=== PATIENT | female | born 1995 | race Caucasian/White ===

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

== ENCOUNTER 2017-02-15 16:06 | Emergency (ER) | payer OTHER ==
[~2017-02-15] VITALS: Ht 162.6 cm; Wt 55.8 kg
[~2017-02-15 16:06] MED LIST changes: +BISM-34 PO; +ONDA4TAB14 PO
[2017-02-15 16:09] VITALS: Ht 162.6 cm; Wt 55.8 kg
[2017-02-15] MEDS ORDERED: ONDANSETRON (ODT) 4 MG TAB ODT STA (16:46)
[2017-02-15 16:55] LABS: URINE BLOOD (Dip) POC Negative (NEGATIVE)
[2017-02-15] MEDS ORDERED: ONDA4TAB8 PO (17:02)
--- NOTE | 2017-02-15 17:30 | ERD ---
ER Documentation Chief Complaint Chief Complaint N/V X 4 TIMES TODAY BUT GOING ON FOR FEW YEARS; WANTS EXAM HPI Patient is a 21-year-old female with no past medical history here with sister who presents to the ED with on and off nausea and vomiting, nonbloody nonbilious. States that her vomiting his saliva. She also complains of dysuria and cloudy urine on and off. Also complains of low back pain on and off for the last 2 years. Patient does not have a primary care provider and has not establish care. She denies fever or chills. She denies abdominal pain. She did have an episode of nonbloody nonblack or tarry diarrhea today. Denies recent travel. Denies chest pain or cough or shortness of breath. Denies leg pain or leg swelling. States that she had a decrease in appetite today. No other complaints. She is sexually active with men and does not use protection or on control. No history of STDs. ROS All systems reviewed and are negative except as per history of present illness. Medications Home Meds Active Scripts Ondansetron Hcl* (Zofran*) 4 Mg Tablet, 4 MG PO Q6H for NAUSEA AND/OR VOMITING, #30 TAB Prov:FLORINA MONTANO PA-C 02/15/17 Ondansetron (Ondansetron Odt) 4 Mg Tab.rapdis, 4 MG PO Q6H Y for NAUSEA AND/OR VOMITING, #10 TAB Prov:SUKHJINDER NAZARIO PA-C 04/12/16 Bismuth Subsalicylate* (Bismuth Subsalicylate*) 262 Mg/15 Ml Oral.susp, 15 ML PO Q6 Y for prn, #120 ML Prov:SUKHJINDER NAZARIO PA-C 04/12/16 Ibuprofen* (Motrin*) 800 Mg Tab, 800 MG PO Q6H Y for PAIN AND OR ELEVATED TEMP, #30 TAB Prov:RAVINDRA VASQUEZ DO 09/21/15 Allergies Allergies: Coded Allergies: No Known Allergy (Unverified , 02/15/17) PMhx/Soc Medical and Surgical Hx: pt denies Medical Hx, pt denies Surgical Hx Hx Alcohol Use: No Hx Substance Use: No Hx Tobacco Use: No Smoking Status: Never smoker FmHx Family History: No coronary disease, No diabetes, No other Physical Exam Vitals Vital Signs Date Time Temp Pulse Resp B/P Pulse Ox O2 Delivery O2 Flow Rate FiO2 02/15/17 16:09 97.2 66 18 121/66 97 Physical Exam GENERAL: Well-developed, well-nourished female. Appears in no acute distress. HEAD: Normocephalic, atraumatic. EYES: Pupils are equally reactive bilaterally. EOMs grossly intact. No conjunctival erythema. ENT: Moist mucous membranes. No uvula deviation. No kissing tonsils. No exudates. NECK: Supple. No lymphadenopathy or thyromegaly. No meningismus. negative kernig. negative brudinski. LUNG: Clear to auscultation bilaterally. No rhonchi, wheezing, rales or coarse breath sounds. HEART: Regular rate and rhythm. No murmurs, rubs or gallops. ABDOMEN: No scars, ecchymosis or rashes noted. Soft, nontender, and nondistended. Positive bowel sounds in all four quadrants. No rebound tenderness , no guarding. (-) McBurneys point tenderness. No CVA tenderness. BACK: No midline tenderness. Extremities: Equal pulses bilaterally. No peripheral clubbing, cyanosis or edema. No unilateral leg swelling. NEUROLOGIC: Alert and oriented. Moving all four extremities. 5/5 strength in all extremities. Normal speech. Steady gait. SKIN: Normal color. Warm and dry. No rashes or lesions. Capillary refill < 2 seconds Results 24 hrs Laboratory Tests Test 02/15/17 16:54 Bedside Urine pH (LAB) 5.5 Bedside Urine Protein (LAB) Trace Bedside Urine Glucose (UA) Negative Bedside Urine Ketones (LAB) 2+ Bedside Urine Blood Negative Bedside Urine Nitrite (LAB) Negative Bedside Urine Leukocyte Esterase (L Negative Current Medications Medications (Trade) Dose Ordered Sig/Sarah Route PRN Reason Start Time Stop Time Status Last Admin Dose Admin Ondansetron HCl (Zofran Odt) 4 mg ONCE STAT ODT 02/15/17 16:46 02/15/17 16:47 DC 02/15/17 16:57 Procedures/MDM ER COURSE: I kept the patient and/or family informed of laboratory and diagnostic imaging results throughout the emergency room course. MEDICAL DECISION MAKING: This is a 21-year-old female who presents with dysuria, nausea and vomiting on and off 2 years. Vital signs were reviewed. Patient is afebrile. Patient is not hypoxic. Is not toxic or ill-appearing. Patient's urine dip is negative for nitrites, leukocytes or hematuria. Negative test. Low suspicion for cystitis. Patient was given Zofran, tolerated well with no adverse reaction. I advised patient that she needs to follow-up with her primary care provider to establish care and get general workup done and follow-up regarding her chronic symptoms. Low suspicion for ACS, AAA, perforated ulcer, bowel obstruction, cholecystitis, choledocholithiasis, cholangitis, pancreatitis, hepatic abscess, appendicitis, diverticulitis, gastroenteritis, hepatitis. Low suspicion for ovarian torsion, PID, tuboovarian abscess, ectopic , bowel obstruction, pyelonephritis, UTI, appendicitis, cervicitis. Suspicion for dehydration, moist mucous membranes. Suspicion for acute abdomen DISCHARGE: At this time, patient is stable for discharge and outpatient management with no new complaints during the ER course. Patient was sent home with Zofran and a list of primary care providers.. Patient will be discharged home with instructions to recheck for new or worsening symptoms such as fever, nausea, weakness, LOC and to follow up with primary care in the next 1-2 days. Patient was advised to return to the ER for any new or worsening symptoms. Plan was discussed and patient and/or family understands and agrees. Home instructions were given. Departure Diagnosis: Primary Impression: Dysuria Additional Impression: Nausea and vomiting Vomiting type: unspecified Vomiting Intractability: non-intractable Qualified Code: R11.2 - Non-intractable vomiting with nausea, unspecified vomiting type Condition: Stable Patient Instructions: Dysuria Referrals: REPLACED BY [facility] YOU HAVE RECEIVED A MEDICAL SCREENING EXAM AND THE RESULTS INDICATE THAT YOU DO NOT HAVE A CONDITION THAT REQUIRES URGENT TREATMENT IN THE EMERGENCY DEPARTMENT. FURTHER EVALUATION AND TREATMENT OF YOUR CONDITION CAN WAIT UNTIL YOU ARE SEEN IN YOUR DOCTORS OFFICE WITHIN THE NEXT 1-2 DAYS. IT IS YOUR RESPONSIBILITY TO MAKE AN APPOINTMENT FOR FOLOW-UP CARE. IF YOU HAVE A PRIMARY DOCTOR --you should call your primary doctor and schedule an appointment IF YOU DO NOT HAVE A PRIMARY DOCTOR YOU CAN CALL OUR PHYSICIAN REFERRAL HOTLINE AT IF YOU CAN NOT AFFORD TO SEE A PHYSICIAN YOU CAN CHOSE FROM THE FOLLOWING [facility] [id number] [facility] [address] [facility] [address] [facility] [address] [facility]. [facility] [address] [facility]. [facility] [address] Additional Instructions: Call your primary care doctor TOMORROW for an appointment during the next 1-2 days.See the doctor sooner or return here if your condition worsens before your appointment time. FLORINA MONTANO PA-C Feb 15, 2017 17:30
== END 2017-02-15 17:26 | disposition home or self-care (01) ==
LOC: FTE 16:06
DX: R30.0 Dysuria (principal)
CPT/HCPCS: 81003; Z7502; Z7610; 99283

== ENCOUNTER 2017-03-04 18:04 | Emergency (ER) | payer OTHER ==
[~2017-03-04] VITALS: Ht 165.1 cm; Wt 53.4 kg
[~2017-03-04 18:04] MED LIST changes: +ONDA4TAB8 PO
[2017-03-04 18:12] VITALS: Ht 165.1 cm; Wt 53.4 kg
[2017-03-04] MEDS ORDERED: KETOROLAC 30 MG INJ IM STA (18:45)
[2017-03-04] MEDS ORDERED: DIPHENHYDRAMINE 50 MG INJ IM ONE (19:00)
[2017-03-04] MEDS ORDERED: METOCLOPRAMIDE 10 MG INJ IM ONE (19:00)
--- NOTE | 2017-03-04 19:30 | ERD ---
ER Documentation Chief Complaint Chief Complaint headache x 2 days HPI Otherwise healthy 21-year-old female presenting with a chief complaint of headache. Headache has been intermittent for the past 4-5 days. Patient has headaches in the past. Describes his headache as 8-9 out of 10. Described as sharp and bilateral. Has not taken any medications to relieve the symptoms. Denies fever, worst headache of life, thunderclap headache, meningismus, temporal pain, eye pain, aura, change in vision, or new medications. Patient has no other complaints and describes no other associated manifestations. No recent travel. The nursing notes have been reviewed and are consistent with the obtained history. ROS All systems reviewed and are negative except as per history of present illness. Medications Home Meds Active Scripts Ondansetron Hcl* (Zofran*) 4 Mg Tablet, 4 MG PO Q6H for NAUSEA AND/OR VOMITING, #30 TAB Prov:FLORINA MONTANO PA-C 02/15/17 Ondansetron (Ondansetron Odt) 4 Mg Tab.rapdis, 4 MG PO Q6H Y for NAUSEA AND/OR VOMITING, #10 TAB Prov:SUKHJINDER NAZARIO PA-C 04/12/16 Bismuth Subsalicylate* (Bismuth Subsalicylate*) 262 Mg/15 Ml Oral.susp, 15 ML PO Q6 Y for prn, #120 ML Prov:SUKHJINDER NAZARIO PA-C 04/12/16 Ibuprofen* (Motrin*) 800 Mg Tab, 800 MG PO Q6H Y for PAIN AND OR ELEVATED TEMP, #30 TAB Prov:RAVINDRA VASQUEZ DO 09/21/15 Allergies Allergies: Coded Allergies: No Known Allergy (Unverified , 02/15/17) PMhx/Soc Medical and Surgical Hx: pt denies Medical Hx, pt denies Surgical Hx Hx Alcohol Use: No Hx Substance Use: No Hx Tobacco Use: No Smoking Status: Never smoker Physical Exam Vitals Vital Signs Date Time Temp Pulse Resp B/P Pulse Ox O2 Delivery O2 Flow Rate FiO2 03/04/17 18:12 98.8 80 18 120/68 96 Physical Exam Const: Healthy appearing, well-nourished, well-developed 21-year-old female laughing and joking around in no acute distress. Head: Normocephalic, Atraumatic. Eyes: Non-injected; No discharge or foreign body. Ophthalmoscope exam unremarkable. EOMI and SAPPHIRE bilaterally. No nystagmus. Neur: Awake, alert and oriented x3. Neurovascularly intact bilaterally. Psych: Normal Mood and Affect. Ears: Normal External Ears, EACs clear, TM normal bilaterally without erythema. Nose: Normal external nose; no discharge, septal deviation, or sinus tenderness. Oral: No oral edema visualized. Mucous membranes moist and pink. Neck: No cervical lymphadenopathy, masses or goiter palpated. Trachea midline. Full range of motion. Supple ~ No meningismus. Negative kernings and brudnizkis signs. Pulm: Good air movement in upper and lower respiratory tracts. No dyspnea, stridor, tripoding or drooling. Clear to auscultation bilaterally. Cardio: Regular rate and rhythm; No murmurs, gallops or rubs auscultated. No JVD grossly observed. Radial and posterior tibial pulses 2+ bilaterally. No cyanosis. Capillary refill less than 2 seconds. Abd: Soft, non tender, non distended. No guarding, masses. Normal bowel sounds. No McBurney's point tenderness. MS: Normal motor strength, normal tone with gross examination. Skin: No petechiae or rashes. No ulcer, induration, jaundice. Good turgor. Back: No midline, flank or CVA tenderness. Ext: No edema or palpable cord. Normal movement of all extremities grossly observed. Results 24 hrs Current Medications Medications (Trade) Dose Ordered Sig/Sarah Route PRN Reason Start Time Stop Time Status Last Admin Dose Admin Ketorolac Tromethamine (Toradol) 30 mg ONCE STAT IM 03/04/17 18:45 03/04/17 18:47 DC 03/04/17 19:16 Diphenhydramine HCl (Benadryl) 25 mg ONCE ONCE IM 03/04/17 19:00 03/04/17 19:01 DC 03/04/17 19:16 Metoclopramide HCl (Reglan) 10 mg ONCE ONCE IM 03/04/17 19:00 03/04/17 19:01 DC 03/04/17 19:16 Procedures/[facility] Patient was worked up and evaluated for headache as described in the history and physical examination. Patient was given Benadryl 25 mg IM, Reglan 10 mg IM , and Toradol 30 mg IM with complete relief of symptoms. There are no red flags to support brain CT evaluation. The current most likely diagnosis is tension- type headache versus migraine. Patient will be discharged with [id number] ibuprofen and Tylenol for discomfort. At this time, I have little suspicion for subarachnoid hemorrhage or other intracranial bleeds, meningitis, temporal arteritis, glaucoma, hypertensive urgency/emergency, cerebral ischemia, arterial dissection, brain abscess/tumor, pain secondary to trauma, septicemia, or other intracranial bleeds. I have spoke with the patient regarding their condition and future management. They have verbally responded that they understand their status and treatment plan. The patients vitals are stable, and their current condition is appropriate for discharge. The patient will be given discharge instructions with return precautions. Departure Diagnosis: Primary Impression: Headache Headache type: unspecified Headache chronicity pattern: episodic headache Intractability: not intractable Qualified Code: R51 - Nonintractable episodic headache, unspecified headache type Condition: Stable Additional Instructions: Follow up with your PCP within the next 1-3 days for a more thorough evaluation and a possible referral to a specialist. Return the the emergency department immediately if symptoms worsen or change. If you have any questions regarding medications, ask your pharmacist or us before you leave. If any adverse reactions occur while taking your medications, discontinue the treatment and return to the emergency department immediately. Take your medications as directed, and complete the entire course of treatment. ELIZABET DOHERTY PA-C Mar 04, 2017 19:30
== END 2017-03-04 20:23 | disposition home or self-care (01) ==
LOC: FTE 18:04
DX: R51 Headache (principal)
CPT/HCPCS: 96372; J1200; J1885; J2765; Z7502

== ENCOUNTER 2017-03-24 13:10 | Emergency (ER) | payer OTHER ==
[~2017-03-24] VITALS: Ht 154.9 cm; Wt 53.7 kg
[2017-03-24 13:20] VITALS: Ht 154.9 cm; Wt 53.7 kg
--- NOTE | 2017-03-24 16:20 | ERD ---
ER Documentation Chief Complaint Chief Complaint nausea and vomiting since last night HPI 21-year-old female complaining of nausea vomiting since last night. She had 4 episodes of vomiting total. Last episode was 10 AM this morning, about 5 hours ago. She is able to drink water without vomiting. LMP was 02/26/2017. She admits to using marijuana regularly, last use was last night. Denies fever or chills. Denies abdominal pain or diarrhea. Denies dysuria. Denies cough or runny nose. ROS All systems reviewed and are negative except as per history of present illness. Medications Home Meds Active Scripts Ondansetron Hcl* (Zofran*) 4 Mg Tablet, 4 MG PO Q6H for NAUSEA AND/OR VOMITING, #30 TAB Prov:FLORINA MONTANO PA-C 02/15/17 Ondansetron (Ondansetron Odt) 4 Mg Tab.rapdis, 4 MG PO Q6H Y for NAUSEA AND/OR VOMITING, #10 TAB Prov:SUKHJINDER NAZARIO PA-C 04/12/16 Bismuth Subsalicylate* (Bismuth Subsalicylate*) 262 Mg/15 Ml Oral.susp, 15 ML PO Q6 Y for prn, #120 ML Prov:SUKHJINDER NAZARIO PA-C 04/12/16 Ibuprofen* (Motrin*) 800 Mg Tab, 800 MG PO Q6H Y for PAIN AND OR ELEVATED TEMP, #30 TAB Prov:RAVINDRA VASQUEZ DO 09/21/15 Allergies Allergies: Coded Allergies: No Known Allergy (Unverified , 02/15/17) PMhx/Soc History of Surgery: No Anesthesia Reaction: No Hx Neurological Disorder: No Hx Respiratory Disorders: No Hx Cardiac Disorders: No Hx Psychiatric Problems: No Hx Miscellaneous Medical Probl: No Hx Alcohol Use: Yes (OCC) Hx Substance Use: Yes (OCC) Hx Tobacco Use: No Smoking Status: Never smoker Physical Exam Vitals Vital Signs Date Time Temp Pulse Resp B/P Pulse Ox O2 Delivery O2 Flow Rate FiO2 03/24/17 13:20 98.2 54 18 128/59 97 Physical Exam General: Well-developed, well-nourished, conscious and coherent, in no distress Skin: Warm and dry without rash, good texture and turgor Head: Normocephalic without evidence of trauma Eyes: Sclera and conjunctivae normal; pupils equal, round, and reactive to light; extraocular movements are intact Chest: Normal AP diameter. Good expansion without retractions. Nontender. Lungs are clear to auscultate bilaterally with good tidal volume Heart: Regular rate and rhythm. No murmur, rub, or gallops heard Abdomen: Soft and nontender without masses, guarding, or rebound. Bowel sounds are active. No hepatosplenomegaly Back: Without spinal or CVA tenderness Pelvis: Nontender to palpation and stable to compression Extremities: Full range of motion. Good strength bilaterally. No clubbing, cyanosis, or edema. Peripheral pulses are intact. Sensation intact Neuro: Alert and oriented 4, GCS 15. Cranial nerves grossly intact. Motor and sensory exams nonfocal. Moves all extremities. Speech clear. Gait normal Procedures/MDM Well-appearing 21-year-old female presented to ED with nausea vomiting since last night. Patient's urine test is negative. I suspect the constipation nausea vomiting is secondary to cannabis use. Patient is afebrile , does not have any abdominal tenderness on palpation. I doubt acute appendicitis, cholecystitis or other acute abdomen. Patient passed p.o. fluid challenge. Patient appears well, stable for discharge and outpatient management. Medical decision making shared with patient and family. Education provided to patient and family. Patient and family expressed understanding of the plan. Marijuana cessation counseling provided for the patient. Medications on discharge: None. Follow-up: Primary care provider in 2-3 days or return to ED if worse. Disclaimer: Inadvertent spelling and grammatical errors are likely due to EHR/ dictation software use and do not reflect on the overall quality of patient care. Also, please note that the electronic time recorded on this note does not necessarily reflect the actual time of the patient encounter. Departure Diagnosis: Primary Impression: Nausea and vomiting Vomiting type: unspecified Vomiting Intractability: non-intractable Qualified Code: R11.2 - Non-intractable vomiting with nausea, unspecified vomiting type Additional Impression: Marijuana use Condition: Stable Patient Instructions: Nausea and Vomiting-Adult Referrals: [facility] (PCP) Additional Instructions: Stop using marijuana. Call your primary care doctor TOMORROW for an appointment during the next 2-3 days.See the doctor sooner or return here if your condition worsens before your appointment time. JAZMIN FUENTES. HENNA Mar 24, 2017 16:20
== END 2017-03-24 18:47 | disposition home or self-care (01) ==
LOC: FTE 13:10
DX: R11.2 Nausea with vomiting, unspecified (principal); F12.90 Cannabis use, unspecified, uncomplicated
CPT/HCPCS: 99282

== ENCOUNTER 2018-07-01 05:00 | Emergency (ER) | payer OTHER ==
[~2018-07-01] VITALS: Wt 54.7 kg
[~2018-07-01 05:00] MED LIST changes: -IBUP800T25 PO; +IBUP800T48 PO
[2018-07-01 05:06] VITALS: BP 115/67; PULSE 100; RESP 18
[2018-07-01] MEDS ORDERED: CEPH-443 PO (06:21)
--- NOTE | 2018-07-01 06:29 | ERD ---
ER Documentation Chief Complaint Chief Complaint PT STATES NEW TATTOO FEELS INFECTED HPI 22-year-old female presenting for possible infection to a new tattoo of her left forearm. Patient had tattoo placed 4 days ago. She states she has had tattoos in the past that she has had take care of him and she is been taking care of them the same as previously. She denies any fevers. She has some pain to the tattoo site. Has not taken oral antibiotics. Denies other medical problems. NKDA. Surgical history denies. Social history denies ROS All systems reviewed and are negative except as per history of present illness. Medications Home Meds Active Scripts Cephalexin* (Keflex*) 500 Mg Capsule, 500 MG PO QID for 7 Days, CAP Prov:MAGALIE BARBOZA PA-C 07/01/18 Ondansetron Hcl* (Zofran*) 4 Mg Tablet, 4 MG PO Q6H for NAUSEA AND/OR VOMITING, #30 TAB Prov:FLORINA MONTANO PA-C 02/15/17 Ondansetron (Ondansetron Odt) 4 Mg Tab.rapdis, 4 MG PO Q6H PRN for NAUSEA AND/OR VOMITING, #10 TAB Prov:SUKHJINDER NAZARIO PA-C 04/12/16 Bismuth Subsalicylate* (Bismuth Subsalicylate*) 262 Mg/15 Ml Oral.susp, 15 ML PO Q6 PRN for prn, #120 ML Prov:SUKHJINDER NAZARIO PA-C 04/12/16 Ibuprofen* (Motrin*) 800 Mg Tab, 800 MG PO Q6H PRN for PAIN AND OR ELEVATED TEMP, #30 TAB Prov:RAVINDRA VASQUEZ DO 09/21/15 Allergies Allergies: Coded Allergies: No Known Allergy (Unverified , 02/15/17) PMhx/Soc Medical and Surgical Hx: pt denies Medical Hx, pt denies Surgical Hx History of Surgery: No Anesthesia Reaction: No Hx Neurological Disorder: No Hx Respiratory Disorders: No Hx Cardiac Disorders: No Hx Psychiatric Problems: No Hx Miscellaneous Medical Probl: No Hx Alcohol Use: Yes (OCC) Hx Substance Use: Yes (OCC) Hx Tobacco Use: No Smoking Status: Never smoker FmHx Family History: No diabetes, No coronary disease, No other Physical Exam Vitals Vital Signs Date Temp Pulse Resp B/P (MAP) Pulse Ox O2 O2 Flow FiO2 Time Delivery Rate 07/01/18 98.9 100 18 115/67 99 05:06 (83) Physical Exam GENERAL: The patient is well-appearing, well-nourished, in no acute distress CHEST: Clear to auscultation bilaterally. There are no rales, wheezes or rhonchi. HEART: Regular rate and rhythm. No murmurs, clicks, rubs or gallops. EXTREMITIES: Equal pulses bilaterally. There is no peripheral clubbing, cyanosis or edema. No focal swelling or erythema. Full range of motion. Grossly neurovascularly intact. NEUROLOGIC: Motor strength in all 4 extremities with 5 out of 5 strength. Sensation grossly intact. SKIN: Tattoo noted of the left forearm with surrounding erythema. No purulence. No lymphatic streaking. No fluctuance. Procedures/MDM MDM: 22-year-old female presenting with skin infection. Patient was treated with oral antibiotics. Patient is recommended to continue cleaning at home as previously recommended by associate artistic director. Patient is told that she see streaking or develops fever to return to the ER. There is no indication for incision and drainage today. She is discharged stricter precautions and told to follow-up with primary care within 1-2 days for close evaluation. All questions answered at discharge Departure Diagnosis: Primary Impression: Encounter for wound re-check Condition: Stable Patient Instructions: Wound Care Referrals: [facility] (PCP) Additional Instructions: FOLLOW UP WITH YOUR PRIMARY CARE PHYSICIAN TOMORROW.Return to this facility if you are not improving as expected. MAGALIE BARBOZA PA-C Jul 01, 2018 06:29
== END 2018-07-01 06:48 | disposition home or self-care (01) ==
LOC: FTE 05:00
DX: L08.9 Local infection of the skin and subcutaneous tissue, unspecified (principal)
CPT/HCPCS: 99283